=== PATIENT | male | born 1985 | race Caucasian/White ===

== ENCOUNTER 2020-11-25 13:00 | Outpatient (CLI) | payer OTHER ==
--- NOTE | 2020-11-25 14:01 | MRI ---
MRI BRAIN WITHOUT CONTRAST: HISTORY: Headache, migraines FINDINGS: No restricted diffusion is seen. The ventricular size is appropriate and the basilar cisterns are pat ent. No tonsillar herniation is seen. No evidence of acute infarct, hemorrhage, midline shift or abnormal extra-axial fluid collections is seen. The visualized paranasal sinuses and mastoid air cells are well-aerated. IMPRESSION: Normal exam.
--- NOTE | 2020-11-25 14:06 | RAD ---
XR Finger(s) Rt Min 2 View History: Finger injury Comparison: None. Findings: No acute displaced fracture or malalignment. No radiopaque foreign object. Impression: No acute osseous abnormality. Mild lateral soft tissue swelling proximal interphalangeal joint small finger.
--- NOTE | 2020-11-25 14:09 | RAD ---
XR Foot Rt 3 View STANDARD History: Foot trauma Comparison: None. Findings: No acute displaced fracture or malalignment. Lisfranc interval is maintained. Mild ossification of the talar neck insertion of the anterior ankle joint capsule. Impression: No acute osseous abnormality.
== END 2020-11-25 13:01 | disposition home or self-care (01) ==
LOC: BICMRI 13:00
PROVIDERS: ATTEND Family Medicine
DX: S99.921A Unspecified injury of right foot, initial encounter (principal); S69.91XA Unspecified injury of right wrist, hand and finger(s), initial encounter; R51.9 Headache, unspecified; M79.89 Other specified soft tissue disorders
CPT/HCPCS: 70551

== ENCOUNTER 2021-11-02 09:17 | Outpatient (CLI) | payer OTHER ==
[2021-11-02 10:31] LABS: #Eosinphils 0.1 10x3/uL (0.0-0.5); #Monocytes 0.5 10x3/uL (0.0-1.1); %Basophils 0.3 % (0.0-2.0); %Eosinophils 1.3 % (0.0-6.0); %Lymphocytes 39.1 % (18.0-47.0); %Monocytes 8.4 % (0.0-10.0); %Neutrophils 50.7 % (40.0-75.0); Hemoglobin 15.1 g/dL (13.5-17.5); Mean Corpuscular HGB CONC 32.1 g/dL (32.0-36.0); Mean Corpuscular Hemoglobin 27.5 pg (27.0-33.0); Mean Corpuscular Volume 85.8 fl (81.2-95.1); Mean Platelet Volume 9.1 fl (7.4-10.4); Platelet Count 250 10x3/uL (150-450); RBC Distribution Width 12.8 % (11.5-14.5); Red Blood Cell (RBC) Count 5.49 10x6/uL (4.32-5.72)
[2021-11-02 10:49] LABS: Anion Gap 12 mmol/L (10-20); BUN (Urea Nitrogen) 11 mg/dL (8.9-20.6); Calc. Creatinine Clearance 0 mL/min (70-130); Calcium 9.5 mg/dL (7.8-10.44); Carbon Dioxide 29 mmol/L (22-29); Chloride 103 mmol/L (98-107); Glucose 98 mg/dL (70-105); Potassium 4.1 mmol/L (3.5-5.1); Sodium 140 mmol/L (136-145)
[2021-11-02 21:41] LABS: SARS-CoV-2 PCR by NAA Not Detected (NotDetected)
== END 2021-11-02 09:18 | disposition home or self-care (01) ==
LOC: LABBT 09:17
PROVIDERS: ATTEND Specialist
DX: Z01.812 Encounter for preprocedural laboratory examination (principal); L05.91 Pilonidal cyst without abscess; Z20.822 Contact with and (suspected) exposure to COVID-19
CPT/HCPCS: 80048; 85025; U0003; U0005

== ENCOUNTER 2021-11-05 08:51 | Day surgery (SDC) | payer OTHER ==
[2021-11-02 10:50] VITALS: BMI 24.1
[2021-11-05] MEDS ORDERED: Ketorolac Tromethamine 30 MG/ML VIAL ONE (10:03)
[2021-11-05] MEDS ORDERED: Acetaminophen 500 MG TAB ONE (10:03)
[2021-11-05] MEDS ORDERED: Fentanyl 100 MCG/2 ML VIAL ONE (11:51)
[2021-11-05] MEDS ORDERED: Dexmedetomidine 200 MCG/2 ML VIAL ONE (11:52)
[2021-11-05] MEDS ORDERED: Bupivacaine 0.25% HCL 30 ML VIAL ONE (11:56)
[2021-11-05] MEDS ORDERED: Bacitracin Zinc Ointment 30 gm TUBE ONE (11:56)
[2021-11-05] MEDS ORDERED: EPINEPHrine 1 MG/ML AMP ONE (11:56)
[2021-11-05] MEDS ORDERED: Methylene Blue 50 MG/10 ML AMPUL ONE (11:57)
[2021-11-05] MEDS ORDERED: Midazolam HCl 2 mg/2 ml Vial ONE (12:03)
[2021-11-05] MEDS ORDERED: Succinylcholine 200 MG/10 ml SYRINGE FS ONE (12:17)
[2021-11-05] MEDS ORDERED: Dexamethasone 20 MG/5 ML VIAL ONE (12:17)
[2021-11-05] MEDS ORDERED: Ondansetron PF 4 MG/2 ML Vial ONE (12:17)
[2021-11-05] MEDS ORDERED: Lidocaine 1% PF 5 ML VIAL ONE (12:17)
[2021-11-05] MEDS ORDERED: PROPOFOL 200 MG/20 ML VIAL ONE (12:17)
== END 2021-11-05 14:48 | disposition home or self-care (01) ==
LOC: SDC 08:51
PROVIDERS: ATTEND Specialist
PROC: 0JB90ZZ Excision of Buttock Subcutaneous Tissue and Fascia, Open Approach (ICD-10-PCS; principal; 2021-11-05)
DX: L05.91 Pilonidal cyst without abscess (principal); G43.909 Migraine, unspecified, not intractable, without status migrainosus; F17.220 Nicotine dependence, chewing tobacco, uncomplicated
CPT/HCPCS: 88304; J0171; J1100; J1885; J2250; J2405; J2704; J3010; Q9968; S0020

== ENCOUNTER 2022-09-01 14:00 | Outpatient (CLI) | payer OTHER | END 2022-09-01 14:01 | disposition home or self-care (01) | LOC: SLEEPLAB 14:00 | PROVIDERS: ATTEND Family Medicine | DX: G47.33 Obstructive sleep apnea (adult) (pediatric) (principal); R53.83 Other fatigue; R06.83 Snoring; G47.10 Hypersomnia, unspecified; G43.909 Migraine, unspecified, not intractable, without status migrainosus; G47.00 Insomnia, unspecified | CPT/HCPCS: 95810 ==